=== PATIENT | female | born 1960 | race African-American/Black ===

== ENCOUNTER 2019-07-03 20:40 | Emergency (ER) | payer OTHER ==
[~2019-07-03] VITALS: Ht 160 cm; Wt 62.6 kg
[2019-07-03] MEDS ORDERED: IBUPROFEN 200200 M1 PO (21:33)
[2019-07-03 21:34] LABS: ABSOLUTE NEUTROPHILS 4.4 thou/uL (1.4-8.2); EOSINOPHILS 1.2 % (0.0-3.0); HEMATOCRIT 37.6 % (37.0-47.0); LYMPHOCYTES 30.1 % (24.0-44.0); MCH 30.4 pg (26.0-34.0); MCHC 34.5 g/dL (28.0-37.0); MCV 88.2 fL (80.0-100.0); MONOCYTES 6.6 % (1.0-8.0); PLATELET COUNT 291 thou/uL (150-400); POLYS 61.1 % (36.0-66.0); RBC 4.26 mil/uL (4.20-5.00); RDW 13.1 % (10.5-14.5); WBC 7.2 thou/uL (4.0-11.0)
[2019-07-03 21:42] LABS: ANION GAP 10 mmol/L (7-16); BUN 9 mg/dL (7-18); CALCIUM 9.5 mg/dL (8.5-10.1); CHLORIDE 100 mmol/L (98-107); CO2 27 mmol/L (21-32); CREATININE 0.9 mg/dL (0.6-1.0); GLUCOSE 109 mg/dL (74-106); POTASSIUM 3.8 mmol/L (3.5-5.1); SODIUM 137 mmol/L (136-145)
[2019-07-03 21:52] LABS: ALBUMIN 4.2 g/dL (3.4-5.0); MAGNESIUM 1.8 mg/dL (1.8-2.4); SGOT 15 U/L (15-37); SGPT 23 U/L (30-65); TOTAL BILIRUBIN 1.6 mg/dL (<0.1-1.0); TOTAL PROTEIN 8.7 g/dL (6.4-8.2); TROPONIN-I <0.06 ng/mL (<0.06)
[2019-07-03] MEDS ORDERED: NORCO 5-325 TA1 EAC1 PO (22:33)
[2019-07-03] MEDS ORDERED: PREDNISONE 20 M20 MG PO (22:33)
[2019-07-03] MEDS ORDERED: VALTREX1000 MG PO (22:33)
[2019-07-03 23:10] VITALS: BP 130/80
--- NOTE | 2019-07-04 08:20 | EKG ---
[address] [address] ELECTROCARDIOGRAM REPORT Name: INDIA WOLFE Room #: [facility] SYSTEM[facility]go#: [id number] ������������������ Admission: 07/03/19 ������������������ Attend Phys: Discharge: 07/03/19 ������������������ Date of : 60 Report #: [id number] ����������������������������������������������������������������� [id number] THIS REPORT FOR: //name// [facility] ED Test Date: 2019-07-03 Test Time: 21:18:10 Pat Name: INDIA WOLFE Department: Room: Gender: F [employer]: : 1960 Requested By: Trevon Capps Order Number: [id number] MD: Bert Robles Measurements Intervals [place] Rate: 117 P: 81 MD: 167 QRS: -37 QRSD: 83 T: 43 QT: 322 QTc: 450 Interpretive Statements Sinus tachycardia Left axis deviation RSR' in V1 or V2, probably normal variant No previous ECG available for comparison Electronically Signed On 07-04-2019 8:19:42 CDT by Bert Robles [email or web address] ��������������������������������������������� <ELECTRONICALLY SIGNED> ���������������������������������������� By: Bert Robles MD, [facility] ��������������������������������������������� 07/04/19818 17 17 Bert Robles MD, FACC /EPI
== END 2019-07-03 23:15 | disposition home or self-care (01) ==
LOC: ER 20:40
PROVIDERS: Emergency Medicine
DX: B02.9 Zoster without complications (principal); J45.909 Unspecified asthma, uncomplicated; Z90.711 Acquired absence of uterus with remaining cervical stump